=== PATIENT | male | born 1970 | race Caucasian/White ===

== ENCOUNTER 2023-07-30 16:20 | Outpatient (OUT) | payer OTHER, SELFPAY ==
--- NOTE | 2023-07-30 16:36 | XR_ITS ---
The [address] [address] Patient Name: MITESH MURILLO MRN: [id number] date: 1970 Sex: M Assigned Patient Location: LAB Current Patient Location: Accession/Order Number: [id number] Exam Date: 07/30/2023 16:31 Report Date: 08/01/2023 06:59 At the request of: ANABELA MONROY Procedure: XR shoulder RT min 2V PROCEDURE: XR shoulder RT min 2V HISTORY: right shoulder pain M25.511 COMPARISON: None. FINDINGS: BONES:No fracture, acute abnormality, or significant arthropathy. SOFT TISSUES:No visible soft tissue swelling. EFFUSION:None visible. OTHER: Negative. XR/XR shoulder RT min 2V IMPRESSION: 1. No acute bone abnormality or significant degenerative changes. Electronically authenticated by: KERMIT ZUNIGA Date: 08/01/2023 06:59
== END 2023-07-30 16:21 | disposition home or self-care (01) ==
LOC: LAB 16:24
PROVIDERS: PCP Internal Medicine; Visit Provider Internal Medicine
DX: Z00.00 Encounter for general adult medical examination without abnormal findings (principal); M25.511 Pain in right shoulder
CPT/HCPCS: 73030

== ENCOUNTER 2023-07-31 09:42 | Outpatient (OUT) | payer OTHER, SELFPAY ==
--- OUTSIDE RECORDS SUMMARY | 2023-07-31 10:06 | XMS_ITS | CCD ---
Author Name Unknown Address [address] [place] [address] Organization [facility] Care Team Providers Care [place] Pinner Name Role Phone PORFIRIO, DR PEÑALOZA Consulting Unavailable PORFIRIO, DR PEÑALOZA Attending Unavailable PORFIRIO, DR PEÑALOZA Admitting Unavailable PORFIRIO, DR PEÑALOZA Primary Care Unavailable LALITO, DR PATRICIA Cornelius Consulting Unavailable Patricia Chavez Unavailable Problems Problem Classification Problem Date Documented Date Episodic/Chronic Lymphadenitis (1 source) Localized enlarged lymph nodes; Translations: [LOCALIZED ENLARGED LYMPH NODES] Onset: 2 Episodic Other and unspecified benign neoplasm (1 source) Benign lipomatous neoplasm of skin and subcutaneous tissue of trunk; Translations: [YONI LIPOMAT NEOPLSM SKIN SUBQ TRUNK] Onset: 2 Episodic Other gastrointestinal disorders (1 source) Dysphagia, pharyngoesophageal phase; Translations: [DYSPHAGIA PHARYNGOESOPHAGEAL PHASE] Onset: 2 Episodic Results Test Name Value Interpretation Reference Range Facil ity CBC AUTO DIFFon 07-19-2021 BASO # 0.0 103/ul Normal 0.0-0.1 [facility] Comment on above: Performed By: #### C BC #### [facility] [address] [place] [address] Dr. Primo Dumont Basophils/100 WBC (Bld) 1.1 % Normal 0.2-2.0 [facility] Comment on above: Performed By: #### C BC #### [facility] [address] [place] [address] Dr. Primo Dumont EO # 0.2 103/ul Normal 0.0-0.7 [facility] Comment on above: Performed By: #### C BC #### [facility] [address] [place] [address] Dr. Primo Dumont Eosinophils/100 WBC (Bld) 6.3 % Normal 0.9-7.0 [facility] Comment on above: Performed By: #### C BC #### [facility] [address] [place] [address] Dr. Primo Dumont Erythrocyte distribution width (RBC) [Ratio] 12.4 % Normal 11.0-15.0 [facility] Comment on above: Performed By: #### C BC #### [facility] [address] [place] [address] Dr. Primo Dumont Hematocrit (Bld) [Volume fraction] 44.8 % Normal 42.0-54.0 [facility] Comment on above: Performed By: #### C BC #### [facility] [address] [place] [address] Dr. Primo Dumont Hemoglobin (Bld) [Mass/Vol] 14.7 g/dL Normal 14.0-18.0 [facility] Comment on above: Performed By: #### C BC #### [facility] [address] [place] [address] Dr. Primo Dumont IG # 0.01 10e3/ul Normal 0.00-0.03 [facility] Comment on above: Performed By: #### C BC #### [facility] [address] [place] [address] Dr. Primo Dumont IG % 0.3 % Normal 0.0-0.5 [facility] Comment on above: Performed By: #### C BC #### [facility] [address] [place] [address] Dr. Primo Dumont LYMPH # 1.4 103/ul Normal 1.2-3.8 [facility] Comment on above: Performed By: #### C BC #### [facility] [address] [place] [address] Dr. Primo Dumont Lymphocytes/100 WBC (Bld) 40.2 % Normal 20.5-60.0 [facility] Comment on above: Performed By: #### C BC #### [facility] [address] [place] [address] Dr. Primo Dumont MANUAL DIFF REQ NO Normal [facility] Comment on above: Performed By: #### C BC #### [facility] [address] [place] [address] Dr. Primo Dumont MCH (RBC) [Entitic mass] 30.4 pg Normal 25.9-34.0 [facility] Comment on above: Performed By: #### C BC #### [facility] [address] [place] [address] Dr. Primo Dumont MCHC (RBC) [Mass/Vol] 32.8 g/dL Normal 29.9-35.2 [facility] Comment on above: Performed By: #### C BC #### [facility] [address] [place] [address] Dr. Primo Dumont MCV (RBC) [Entitic vol] 92.8 fL Normal 80.0-94.0 [facility] Comment on above: Performed By: #### C BC #### [facility] [address] [place] [address] Dr. Primo Dumont MONO # 0.3 103/ul Normal 0.3-0.8 [facility] Comment on above: Performed By: #### C BC #### [facility] [address] [place] [address] Dr. Primo Dumont Monocytes/100 WBC (Bld) 8.8 % Normal 1.7-12.0 [facility] Comment on above: Performed By: #### C BC #### [facility] [address] [place] [address] Dr. Primo Dumont NEUT # 1.5 103/ul Normal 1.4-6.5 [facility] Comment on above: Performed By: #### C BC #### [facility] [address] [place] [address] Dr. Primo Dumont Neutrophils/100 WBC (Bld) 43.3 % Normal 43.0-75.0 [facility] Comment on above: Performed By: #### C BC #### [facility] [address] [place] [address] Dr. Primo Dumont Platelet mean volume (Bld) [Entitic vol] 8.7 fL Critically low 9.5-13.5 [facility] Comment on above: Performed By: #### C BC #### [facility] [address] [address] [address] Primo Dumont PLT 319 103/ul Normal 150-450 [facility] Comment on above: Performed By: #### C BC #### [facility] [address] [address] [address] Primo Dumont RBC 4.83 106/ul Normal 4.70-6.10 [facility] Comment on above: Performed By: #### C BC #### [facility] [address] [address] [address] Primo Dumont WBC 3.5 103/ul Critically low 4.0-11.0 [facility] Comment on above: Performed By: #### C BC #### [facility] [address] [place] [address] Dr. Primo Dumont LIPID PROFILEon 07-19-2021 CHOL-HDL RATIO NORM SEE BELOW Normal [facility] Comment on above: Result Comment: 3.3 - 4.4 LOW RISK 4.4 - 7.1 AVERAGE RISK 7.1 - 11.0 MODERATE RISK >11.0 HIGH RISK Performed By: #### L IPID, CMP #### [facility] [address] [place] [address] Dr. Primo Dumont Cholesterol [Mass/Vol] 231 mg/dL Critically high <=200 [facility] Comment on above: Performed By: #### L IPID, CMP #### [facility] [address] [place] [address] Dr. Primo Dumont Cholesterol in HDL [Mass/Vol] 83 mg/dL Normal [facility] Comment on above: Performed By: #### L IPID, CMP #### [facility] [address] [place] [address] Dr. Primo Dumont Cholesterol in LDL [Mass/Vol] 137.0 mg/dL Normal [facility] Comment on above: Performed By: #### L IPID, CMP #### [facility] [address] [place] [address] Dr. Primo Dumont Cholesterol.total/C holesterol in HDL [Mass ratio] 2.8 {ratio} Normal [facility] Comment on above: Performed By: #### L IPID, CMP #### [facility] [address] [place] [address] Dr. Primo Dumont HDL NORMAL > or = 60 mg/dl - LO W CARDIOVASCULAR RISK <40 mg/dl - HIGH CARDIOVASCULAR RISK Normal [facility] Comment on above: Performed By: #### L IPID, CMP #### [facility] [address] [place] [address] Dr. Primo Dumont LDL CALC NORMAL SEE BELOW Normal [facility] Comment on above: Result Comment: <100 mg/dl OPTIMAL 100 - 129 mg/dl NEAR OR ABOVE OPTIMAL 130 - 159 mg/dl BORDERLINE HIGH 160 - 189 mg/dl HIGH >190 mg/dl VERY HIGH Performed By: #### L IPID, CMP #### [facility] [address] [place] [address] Dr. Primo Dumont Triglyceride [Mass/Vol] 55 mg/dL Normal <=150 [facility] Comment on above: Performed By: #### L IPID, CMP #### [facility] [address] [place] [address] Dr. Primo Dumont VLDL CALC 11.0 mg/dL Normal [facility] Comment on above: Performed By: #### L IPID, CMP #### [facility] [address] [place] [address] Dr. Primo Dumont PROF 14(COMP METB)on 022 Albumin [Mass/Vol] 4.4 g/dL Normal 3.5-5.0 [facility] Comment on above: Performed By: #### L IPID, CMP #### [facility] [address] [place] [address] Dr. Primo Dumont Albumin/Globulin [Mass ratio] 1.2 {ratio} Normal [facility] Comment on above: Performed By: #### L IPID, CMP #### [facility] [address] [place] [address] Dr. Primo Dumont ALP [Catalytic activity/Vol] 67 U/L Normal 38-126 [facility] Comment on above: Performed By: #### L IPID, CMP #### [facility] [address] [place] [address] Dr. Primo Dumont ALT [Catalytic activity/Vol] 26 U/L Normal 21-72 [facility] Comment on above: Performed By: #### L IPID, CMP #### [facility] [address] [place] [address] Dr. Primo Dumont Anion gap [Moles/Vol] 7.2 mmol/L Normal [facility] Comment on above: Performed By: #### L IPID, CMP #### [facility] [address] [place] [address] Dr. Primo Dumont AST [Catalytic activity/Vol] 15 U/L Critically low 17-59 [facility] Comment on above: Performed By: #### L IPID, CMP #### [facility] [address] [place] [address] Dr. Primo Dumont Bilirubin [Mass/Vol] 0.5 mg/dL Normal 0.2-1.3 [facility] Comment on above: Performed By: #### L IPID, CMP #### [facility] [address] [place] [address] Dr. Primo Dumont Calcium [Mass/Vol] 8.9 mg/dL Normal 8.4-10.2 [facility] Comment on above: Performed By: #### L IPID, CMP #### [facility] [address] [place] [address] Dr. Primo Dumont Chloride [Moles/Vol] 105 mmol/L Normal 98-107 [facility] Comment on above: Performed By: #### L IPID, CMP #### [facility] [address] [place] [address] Dr. Primo Dumont CO2 [Moles/Vol] 33.0 mmol/L Critically high 22.0-30.0 [facility] Comment on above: Performed By: #### L IPID, CMP #### [facility] [address] [place] [address] Dr. Primo Dumont Creatinine [Mass/Vol] 0.85 mg/dL Normal 0.66-1.25 [facility] Comment on above: Performed By: #### L IPID, CMP #### [facility] [address] [place] [address] Dr. Primo Dumont EGFR-AF NIGERIAN >60 Normal >=60 [facility] Comment on above: Performed By: #### L IPID, CMP #### [facility] [address] [address] [address] Primo Dumont EGFR-NON AF NIGERIAN >60 Normal >=60 [facility] Comment on above: Performed By: #### L IPID, CMP #### [facility] [address] [place] [address] Dr. Primo Dumont Globulin (S) [Mass/Vol] 3.6 g/dL Normal [facility] Comment on above: Performed By: #### L IPID, CMP #### [facility] [address] [place] [address] Dr. Primo Dumont Glucose [Mass/Vol] 107 mg/dL Critically high 74-106 [facility] Comment on above: Performed By: #### L IPID, CMP #### [facility] [address] [place] [address] Dr. Primo Dumont Potassium [Moles/Vol] 4.2 mmol/L Normal 3.4-5.0 [facility] Comment on above: Performed By: #### L IPID, CMP #### [facility] [address] [place] [address] Dr. Primo Dumont Protein [Mass/Vol] 8.0 g/dL Normal 6.1-8.2 [facility] Comment on above: Performed By: #### L IPID, CMP #### [facility] [address] [place] [address] Dr. Primo Dumont Sodium [Moles/Vol] 141 mmol/L Normal 137-145 [facility] Comment on above: Performed By: #### L IPID, CMP #### [facility] [address] [place] [address] Dr. Primo Dumont Urea nitrogen [Mass/Vol] 13.0 mg/dL Normal 9.0-20.0 [facility] Comment on above: Performed By: #### L IPID, CMP #### [facility] [address] [address] [address] Primo Dumont Urea nitrogen/Creatinine [Mass ratio] 15.3 mg/mg Normal [facility] Comment on above: Performed By: #### L IPID, CMP #### [facility] [address] [address] [address] Primo Dumont US SINGLE QUAD LT LOWERon US SINGLE QUAD LT LOWER EXAM: US SINGLE QUAD LT LOWER HISTORY: . Lipoma of skin and subcutaneous tissue of trunk . COMPARISON: None. TECHNIQUE: Carmen scale and color imaging was performed FINDINGS: Scanning of the soft tissues of the left lower quadrant regional to the patient's area of concern demonstrates a 4.1 x 1.8 x 0.6 cm oblong slightly hypoechoic solid area. This is well delineated smoothly marginated. No vascularity is noted ultrasonographically. IMPRESSION: Corresponding with patient's palpable abnormality is a smoothly marginated 4.1 x 1.8 x 0.6 cm slightly hypoechoic solid area. Findings would be most consistent with benign lesion such as a lipoma. A more aggressive lesion cannot entirely be excluded though felt less likely. Clinical correlation is suggested. Electronically authenticated by: PATRICIA CHAVEZ Date: 2021-07-19 09:38 Normal [facility] US ST HEAD_NECKon 07-19-[address] HEAD_NECK EXAM: US ST HEAD_NEC K HISTORY: Localized enlarged lymph nodes COMPARISON: None. TECHNIQUE: Grayscale and color ultrasound FINDINGS: In the area of the patient's palpable abnormality, left neck, to normal size normal morphology lymph nodes are identified. Lymph node 1: 0.8 x 0.4 x 0.7 cm Lymph node 2: 1.2 x 0.6 x 0.7 cm IMPRESSION: 2 normal-sized normal morphology lymph nodes Electronically authenticated by: PATRICIA STARKEY Date: 2021-07-19 09:50 Normal [facility] XR MODIFIED BARIUM SWALLOWon 07-19-2021 XR MODIFIED BARIUM SWALLOW EXAMINATION: XR MODIFIED BARIUM SWALLOW HISTORY: Dysphagia COMPARISON: No relevant comparison available. TECHNIQUE: A swallowing evaluation was performed with fluoroscopy in the usual manner. Standard level fluoroscopic mode of operation utilized. 1 minute of fluoroscopy, 22 images. The procedure was recorded. Speech pathology was present FINDINGS: ORAL PHASE: Normal deglutition. PHARYNGEAL PHASE: Normal swallowing. ASPIRATION: None. STRUCTURE: Normal. No visible obstruction, stricture, or dilatation. OTHER: Negative. IMPRESSION: Normal modified barium swallow Electronically authenticated by: PATRICIA STARKEY Date: 2021-07-19 10:42 Normal [facility] Encounters Encounter Date Encounter Type Care Provider Facility Start: 07-20-2021 Encounter for genera l adult medical examination without abnormal findings DR ANABELA MONROY [facility] Start: 07-19-2021 End: 07-20-[address] ANABELA MONROY Facility: Start: 07-19-2021 End: 07-20-2021 Encounter for general adult medical examination without abnormal findings DR ANABELA MONROY Facility:[facility] Payers Date Payer Category Payer Unknown [id number] 1957 Unknown [id number] Summary Purpose Family History No Family History Records Found Advance Directives No Advanced Directives Records Found Additional Source Comments (unrecognized sect ion and content) No Status Records Found INFORMATION SOURCE (unrecogn ized section and content) DATE CREATED AUTHOR 07/21/2021 [facility] FOR RECORDS PERTAINING TO PATIENTS WHO ARE OR HAVE BEEN ENROLLED IN A CHEMICAL DEPENDENCY/SUBSTANCEABUSE PROGRAM, SOME INFORMATION MAY BE OMITTED. This clinical summary was aggregated from multiple sources. Caution should be exercised in using it in the provision of clinical care. This summary normalizes information from multiple sources, and as a consequence, information in this document may materially change the coding, format and clinical context of patient data. In addition, data may be omitted in some cases. CLINICAL DECISIONS SHOULD BE BASED ON THE PRIMARY CLINICAL RECORDS. [facility] [employer] provides no warranty or guarantee of the accuracy or completeness of information in this document.
[2023-07-31 10:32] LABS: Basophils Percent Auto 1.2 % (0.2-2.0); Eosinophils Absolute Auto 0.2 10^3/uL (0.0-0.7); Eosinophils Percent Auto 6.6 % (0.9-7.0); Hematocrit 44.3 % (42.0-54.0); Hemoglobin 14.8 g/dL (14.0-18.0); Immature Granulocytes Abs Auto 0.01 10^3/uL (0.00-0.03); Immature Granulocytes Pct Auto 0.3 % (0.0-0.5); Lymphocytes Absolute Auto 1.5 10^3/uL (1.2-3.8); Lymphocytes Percent Auto 44.4 % (20.5-60.0); Mean Corpuscular HGB Conc 33.4 g/dL (29.9-35.2); Mean Corpuscular Volume 92.7 fL (80.0-94.0); Monocytes Absolute Auto 0.3 10^3/uL (0.3-0.8); Monocytes Percent Auto 8.4 % (1.7-12.0); Neutrophils Absolute Auto 1.3 10^3/uL (1.4-6.5); Neutrophils Percent Auto 39.1 % (43.0-75.0); Platelet Count 303 10^3/uL (150-450); Red Blood Count 4.78 10^6/uL (4.70-6.10); Red Cell Distribution Width 11.9 % (11.0-15.0); White Blood Count 3.3 10^3/uL (4.0-11.0)
[2023-07-31 11:38] LABS: Alanine Aminotransferase 30 U/L (16-63); Albumin Globulin Ratio 1.2; Albumin Level 4.2 g/dL (3.4-5.0); Alkaline Phosphatase 39 U/L (46-116); Anion Gap 11.6; Aspartate Amino Transferase 20 U/L (15-37); Bilirubin Total 0.7 mg/dL (0.2-1.0); Calcium 8.6 mg/dL (8.5-10.1); Carbon Dioxide 29.5 mmol/L (21.0-32.0); Chloride 101 mmol/L (98-107); Cholesterol 221 mg/dL (<=200); Estimated GFR (African America >60 (>=60); Estimated GFR (Non-African Ame >60 (>=60); Globulin 3.5 g/dL; Glucose 84 mg/dL (74-106); HDL Cholesterol 73 mg/dL (40-60); Potassium 4.1 mmol/L (3.5-5.1); Sodium 138 mmol/L (136-145); Total Protein 7.7 g/dL (6.4-8.2); Triglycerides 55 mg/dL (<=150)
[2023-07-31 12:12] LABS: Prostate Specific Antigen Scrn 1.15 ng/mL (<=4.00)
== END 2023-07-31 09:43 | disposition home or self-care (01) ==
LOC: LAB 09:42
PROVIDERS: PCP Internal Medicine; Visit Provider Internal Medicine
DX: Z00.00 Encounter for general adult medical examination without abnormal findings (principal)
CPT/HCPCS: 36415; 80053; 80061; 85025; G0103

== ENCOUNTER 2023-08-01 12:17 | Outpatient (RCR) | payer OTHER, SELFPAY | END 2023-08-16 13:57 | disposition home or self-care (01) | LOC: PT 12:17 | PROVIDERS: PCP Internal Medicine; Visit Provider Internal Medicine | DX: M25.511 Pain in right shoulder (principal); M75.101 Unspecified rotator cuff tear or rupture of right shoulder, not specified as traumatic | CPT/HCPCS: 97110; 97161 ==

== ENCOUNTER 2025-02-07 06:48 | Outpatient (OUT) | payer OTHER, SELFPAY ==
--- OUTSIDE RECORDS SUMMARY | 2025-01-31 05:34 | XMS_ITS | Continuity of Care Document ---
Author Organization [facility] Address [address] [place] [address] Phone Care Team Providers Care Buckle Stringer Name Role Phone Fernando Matt BRIGHT Primary Care Provider Matt King DO Attending Provider [phone] Care Teams Patient Care Team Team Status: Active Member Role Status Dates Matt King DO Primary Care Provider Active Patient Care Team Team Status: Inactive Member Role Status Dates Matt King DO Primary Care Provider Active Start: January 31, 2025 End: January 31, 2025 Matt King DO Attending Provider Active Sta rt: January 31, 2025 End: January 31, 2025 Chief Complaint and Reason for Visit Chief Complaint Admit Date Wellness January 31, 2025 8:54am Reason for Visit Admit Date Dupuytren's contracture of both hands Se pt2024 8:54am Lipoma of abdominal wall January 31, 2025 8:54am Overweight January 31, 2025 8:54am Right shoulder pain January 31, 2025 8:54am Screening for colon cancer January 8:54am Screening PSA (prostate specific antigen ) January 31, 2025 8:54am Wellness examination January 31 8:54am Allergies, Adverse Reactions, Alerts Allergen Type Severity Reaction Last Updated Verified Status No Known Allergies Allergy Unknown Sept2024 9:02am Yes Active Social History Smoking Status Status Start Date End Date Date of Observa tion Never smoked tobacco (finding) January 31, 2025 9:03am Observation Status Observation Response Date of Response Legal Sex Male (finding) Sex Assigned At Male 1970 Family History Relationship Condition Age at Onset Recorded Date/T ling father Diabetes mellitus Unknown Problems Active Problems Medical Problem Onset Date Status Dupuytren's contracture of both hands Unknown Active Lipoma of abdominal wall Unknown Active Rotator cuff dysfunction Unknown Active Screening for colon cancer Unknown Activ e Spondylosis without myelopathy or radiculopathy, lumbar region Unknown Active Dupuytren contracture Unknown Active Overweight Unknown Active Herpes zoster with complication Unknown Active Right shoulder pain Unknown Active Lumbar spondylosis Unknown Active Medications No known medications Vital Signs Vital Reading Result Reference Range Collection Date/Time Height 76 [in_i] January 31, 2025 9:05am Weight 106.25 kg January 31, 2025 9:05am Heart Rate 60 /min 60-100 January 31, 2025 9:05am Respiratory rate 12 /min 12-24 January 172024 9:05am BP Systolic 105 mm[Hg] 100-140 January 31, 2025 9:05am BP Diastolic 71 mm[Hg] 60-100 January 31, 2025 9:05am BMI (Body Mass Index) 28.5 kg/m2 Sept2024 9:05am Advance Directives Advance Directive Response Recorded Date/ Time Advance Directives No July 29, 2 024 3:12pm Insurance Providers Guarantor Todd Bartlett Address [address] [place] [phone] Contact Info. Home Phone: Payer Policy Id Subscriber's Name Subscriber Id Effectiv e Date Expiration Date [facility] [place] [id number] Todd Bartlett [id number] Encounters Encounter Location(s) Arrival/Admit Date Discharge/Depart Date Provider(s) Departed Physician/Prov ider Office Visit -[facility] January 31, 2025 8:54am January 31, 2025 9:33am Matt King , DO Recent Diagnosis Onset Date Admit Date Dupuytren's contracture of both hands Unknown January 31, 2025 8:54am Lipoma of abdominal wall Unknown er 2024 8:54am Overweight Unknown January 31, 2025 8:54am Right shoulder pain Unknown January [id number] 8:54am Screening for colon cancer Unknown mber 2024 8:54am Screening PSA (prostate specific antigen) Unknow n January 31, 2025 8:54am Wellness examination Unknown January 172024 8:54am Assessments Diagnosis Onset Date Resolution Status Admit Date Dupuytren's contracture of both hands acute January 31, 2025 8:54am Lipoma of abdominal wall acute January 31, 2025 8:54am Overweight acute January 8:54am Right shoulder pain acute [id number] 8:54am Screening for colon cancer acute January 31, 2025 8:54am Screening PSA (prostate specific antigen) noneactive January 8:54am Wellness examination noneactive Jan 8:54am Plan of Treatment Author Matt King [facility] Authored January 31, 2025 9:30am I have instructed this patie nt on a healthy diet and exercise program. I have also reviewed age-appropriate preventive testing recommended. Enlarging soft tissue mass, left lower abdomen. Completed referral to Surgery - decided to observe for now Persistent right shoulder pain. Throwing and working intensify his discomfort. He has reduced ROM in abduction and rotation. XR: normal Symptoms are tolerable I have instructed this patient on a low-fat, high-fiber diet. I have also instructed them to reduce calories, portions sizes, sweet drinks and snacks. I have also recommended they exercise for 30 minutes, 3-5 times weekly. They are aware of the comorbid conditions associated with excessive weight: Diabetes, HTN, Hyperlipidemia, CAD and arthritis. Reassured, denies pain or restriction of motion. Monitor for now and notify office w/ pain. I have recommended yearly PSA testing. I have informed him that the PSA can be elevated w/ cancer, infection and enlarged prostates. I have explained to the patient, that If his PSA is elevated, while there are many causes, referral will be recommended to r/o cancer. He would be referred to Urology, who may recommend an MRI, TRUS/bx or possibly continued monitoring. He is agreeable to this plan of action PSA: 06.02 - 07/2023 This is an asymptomatic, low risk patient, who is due for a screening colonoscopy. There has been no change in appetite, weight or bowel habits. There is no history of abdominal pain, heartburn, dysphagia, melena or hematochezia. Cologuard order printed and faxed Future Tests Future scheduled test information is unavailable Pending Tests Test Name Ordered Date Scheduled Date Comprehensive Metabolic Panel January 31 9:28am Future Visits Future appointment information is unavailable Referrals to Other Providers Referral information is unavailable Future Procedures Procedure Name Ordered Date Scheduled Date Complete Blood Count Auto Diff January 31 9:28am Lipid Panel January 31, 2025 9:28am PSA Screen (Yearly Only) January 31, 2025 9: 28am AMB Cologuard January 31, 2025 9:27am Future Medications Future medication information is unavailable Patient Instructions Patient instructions are unavailable
--- OUTSIDE RECORDS SUMMARY | 2025-02-07 06:51 | XMS_ITS | CCD ---
Author Organization [facility] CliniSyal Care Team Providers Care Manager Wireless Name Role Phone DR MATT KING Consulting Unavailable FERNANDO, DR PEÑALOZA Attending Unavailable FERNANDO, DR PEÑALOZA Admitting Unavailable FERNANDO, DR PEÑALOZA Primary Care Unavailable LALITO, DR PATRICIA Cornelius Consulting Jay Chavez, Patricia Consulting MATT Allen Primary Care Physician Mitesh OLIVER Attending MATT Allen Referring Matt Allen DO Primary Care Provider Matt Knig DO Attending Provider Allergies Allergy Classification Reported Allergen(s) Allergy Type Date of Onset Reaction(s) Facility (1 source) No Known Medication Allergies; Translations: [No Known Medication Allergies] Propensity to adverse reactions (disorder) [facility] Repository Problems Problem Classification Problem Date Documented Date Episodic/Chronic Lymphadenitis (1 source) Localized enlarged lymph nodes; Translations: [LOCALIZED ENLARGED LYMPH NODES] Onset: 2 Episodic Other and unspecified benign neoplasm (3 sources) Benign lipomatous neoplasm of skin and subcutaneous tissue of trunk; Translations: [Lipoma of other skin and subcutaneous tissue] Onset: 2 07-30-2023 Episodic Other and unspecified benign neoplasm (4 sources) Lipoma of abdominal wall; Translations: [Benign lipomatous neoplasm of skin and subcutaneous tissue of trunk] 07-30-2023 Episodic Other and unspecified benign neoplasm (1 source) Lipoma of skin and subcutaneous tissue of trunk; Translations: [Benign lipomatous neoplasm of skin and subcutaneous tissue of trunk] Onset: 4 Episodic Other connective tissue disease (3 sources) Dupuytren's contracture; Translations: [Palmar fascial fibromatosis [Dupuytren]] 07-30-2023 Episodic Other connective tissue disease (1 source) Palmar fascial fibromatosis [Dupuytren]; Translations: [Contracture of palmar fascia] 07-30-2023 Episodic Other connective tissue disease (2 sources) Dupuytrens contracture of bilateral hands; Translations: [Palmar fascial fibromatosis [Dupuytren]] 07-30-2023 Episodic Other connective tissue disease (1 source) Disorder of rotator cuff; Translations: [Unspecified disorder of synovium and tendon, unspecified shoulder] 08-26-2023 Episodic Other gastrointestinal disorders (1 source) Dysphagia, pharyngoesophageal phase; Translations: [DYSPHAGIA PHARYNGOESOPHAGEAL PHASE] Onset: Episodic Other non-traumatic joint disorders (5 sources) Pain in right shoulder; Translations: [Right shoulder pain] 07-30-2023 Episodic Other nutritional; endocrine; and metabolic disorders (4 sources) Overweight; Translations: [Overweight] 07-30-2023 Episodic Other nutritional; endocrine; and metabolic disorders (2 sources) Overweight; Translations: [Overweight] 07-30-2023 Episodic Other nutritional; endocrine; and metabolic disorders (1 source) Overweight in adulthood with body mass index of 25 or more but less than 30 09-10-2023 Episodic Other screening for suspected conditions (not mental disorders or infectious disease) (4 sources) Encounter for screening for malignant neoplasm of prostate; Translations: [Screening for malignant neoplasms of prostate] 07-30-2023 Episodic Spondylosis; intervertebral disc disorders; other back problems (5 sources) Lumbar spondylosis; Translations: [Spondylosis without myelopathy or radiculopathy, lumbar region] 07-30-2023 Chronic Viral infection (2 sources) Herpes zoster; Translations: [Zoster with other complications] 07-30-2023 Episodic Results Test Name Value Interpretation Reference Range Facility Facesheeton 09-11-2023 Facesheet [id number] 0#1.00TIFF Normal [facility] Ambulatory Visit Summaryon 0 09-10-2023 Ambulatory Visit Summary MITESH BARTLETT :1970 Visit Date:09/10/2023 Ambulatory Visit Instructions Your Diagnosis Lipoma of abdominal wall Your Care Team Attending Physician - Mitesh OLIVER MD Primary Care Physician - MATT KING DO Referring Physician - MATT KING DO Procedures Performed None. Discharge Vitals Heart Rate (Peripheral) 72 Respiratory Rate 16 Blood Pressure 112/78 Height 193 cm Height 76 in Weight 108 kg Weight 237.6 lb BMI 28.99 Allergies No Known Allergies No Known Medication Allergies Problems Ongoing - Any problem that you are currently receiving treatment for. BMI 28.0-28.9,adult Lipoma of abdominal wall Lumbar spondylosis Overweight Patient Survey You may receive a survey via text or e-mail asking about your office visit. Please share your experience with us by completing your survey. We appreciate your feedback and thank you for choosing us for your care. Normal [facility] Physician Referralon 024 Physician Referral [id number] #1.00TIFF Normal [facility] Basophils Auto (Bld) [#/Vol] on 07-31-2023 Basophils (Bld) [#/Vol] 0.0 10 3/uL 0.0-0.1 [facility] Basophils/100 WBC Auto (Bld) on 07-31-2023 Basophils/100 WBC (Bld) 1.2 % 0.2-2.0 [facility] Cholesterol in LDL Calc [Mas s/Vol]on 07-31-2023 Cholesterol in LDL [Mass/Vol] 137.0 mg/dL [facility] Comment on above: <100 mg/dl [id number] 0-129 mg/dl NEAR OR ABOVE [id number] mg/dl BORDERLINE [id number] mg/dl HIGH>190 mg/dl VERY HIGH Cholesterol in VLDL Calc [Ma ss/Vol]on 07-31-2023 Cholesterol in VLDL [Mass/Vol] 11.0 mg/dL [facility] Eosinophils/100 WBC Auto (Bl d)on 07-31-2023 Eosinophils/100 WBC (Bld) 6.6 % 0.9-7.0 [facility] Erythrocyte distribution wid th Auto (RBC) [Ratio]on 07-31-2023 Erythrocyte distribution width (RBC) [Ratio] 11.9 % 11.0-15.0 [facility] Estimated glomerular filtrat ion rate (GFR) non- Americanon 07-31-2023 GFR/1.73 sq M.predicted among non-blacks MDRD (S/P/Bld) [Vol rate/Area] mL/min/{1.73_m2} >=60 [facility] Globulin Calc (S) [Mass/Vol] on 07-31-2023 Globulin (S) [Mass/Vol] 3.5 g/dL [facility] Hematocrit Auto (Bld) [Volum e fraction]on 07-31-2023 Hematocrit (Bld) [Volume fraction] 44.3 % 42.0-54.0 [facility] Hemoglobin [Mass/volume] in Bloodon 07-31-2023 Hemoglobin (Bld) [Mass/Vol] 14.8 g/dL 14.0-18.0 [facility] Laboratory - Chemistry and C hemistry - challengeon 07-31-2023 Albumin [Mass/Vol] 4.2 g/dL 3.4-5.0 [facility] ALP [Catalytic activity/Vol] 39 U/L 46-116 [facility] ALT [Catalytic activity/Vol] 30 U/L 16-63 [facility] AST [Catalytic activity/Vol] 20 U/L 15-37 [facility] Bilirubin [Mass/Vol] 0.7 mg/dL 0.2-1.0 [facility] Calcium [Mass/Vol] 8.6 mg/dL 8.5-10.1 [facility] Chloride [Moles/Vol] 101 mmol/L 98-107 [facility] Cholesterol [Mass/Vol] 221 mg/dL <=200 [facility] Cholesterol in HDL [Mass/Vol] 73 mg/dL 40-60 [facility] Comment on above: > or =60 mg/dl - LOW CARDIOVASCULAR RISK<40 mg/dl - HIGH CARDIOVASCULAR RISK CO2 [Moles/Vol] 29.5 mmol/L 21.0-32.0 [facility] Creatinine [Mass/Vol] 0.94 mg/dL 0.70-1.30 [facility] GFR/1.73 sq M.predicted MDRD (S/P/Bld) [Vol rate/Area] mL/min/{1.73_m2} >=60 [facility] Glucose [Mass/Vol] 84 mg/dL 74-106 [facility] Potassium [Moles/Vol] 4.1 mmol/L 3.5-5.1 [facility] Protein [Mass/Vol] 7.7 g/dL 6.4-8.2 [facility] Sodium [Moles/Vol] 138 mmol/L 136-145 [facility] Triglyceride [Mass/Vol] 55 mg/dL <=150 [facility] Urea nitrogen [Mass/Vol] 16.0 mg/dL 7.0-18.0 [facility] Urea nitrogen/Creatinine [Mass ratio] 17.0 mg/mg [facility] - Hematology and Cell countson 07-31-2023 Immature granulocytes/100 WBC (Bld) 0.3 % 0.0-0.5 [facility] Leukocytes [#/volume] correc shadi for nucleated erythrocytes in Blood by Automated counon 07-31-2023 WBC corrected for nucl RBC Auto (Bld) [#/Vol] 3.3 10 3/uL 4.0-11.0 [facility] Lymphocytes Auto (Bld) [#/Vo l]on 07-31-2023 Lymphocytes (Bld) [#/Vol] 1.5 10 3/uL 1.2-3.8 [facility] Lymphocytes/100 WBC Auto (Bl d)on 07-31-2023 Lymphocytes/100 WBC (Bld) 44.4 % 20.5-60.0 [facility] MCH Auto (RBC) [Entitic mass ]on 07-31-2023 MCH (RBC) [Entitic mass] 31.0 pg 25.9-34.0 [facility] MCHC Auto (RBC) [Mass/Vol]on 07-31-2023 MCHC (RBC) [Mass/Vol] 33.4 g/dL 29.9-35.2 [facility] MCV Auto (RBC) [Entitic vol] on 07-31-2023 MCV (RBC) [Entitic vol] 92.7 fL 80.0-94.0 [facility] Monocytes Auto (Bld) [#/Vol] on 07-31-2023 Monocytes (Bld) [#/Vol] 0.3 10 3/uL 0.3-0.8 [facility] Monocytes/100 WBC Auto (Bld) on 07-31-2023 Monocytes/100 WBC (Bld) 8.4 % 1.7-12.0 [facility] Neutrophils Auto (Bld) [#/Vo l]on 07-31-2023 Neutrophils (Bld) [#/Vol] 1.3 10 3/uL 1.4-6.5 [facility] Neutrophils/100 WBC Auto (Bl d)on 07-31-2023 Neutrophils/100 WBC (Bld) 39.1 % 43.0-75.0 [facility] No Panel Informationon 07-30 Eosinophils # (Auto) 0.2 10 3/uL 0.0-0.7 [facility] Immature Granulocyte # (Auto) 0.01 10 3/uL 0.00-0.03 [facility] Prostate Specific Antigen Screen 1.15 ng/mL <=4.00 [facility] Platelet mean volume Auto (B ld) [Entitic vol]on 07-31-2023 Platelet mean volume (Bld) [Entitic vol] 10.0 fL 9.5-13.5 [facility] Platelets Auto (Bld) [#/Vol] on 07-31-2023 Platelets (Bld) [#/Vol] 303 10 3/uL 150-450 [facility] RBC Auto (Bld) [#/Vol]on RBC (Bld) [#/Vol] 4.78 10 6/uL 4.70-6.10 [facility] Serum or plasma albumin/glob ulin mass ratioon 07-31-2023 Albumin/Globulin [Mass ratio] 1.2 {ratio} [facility] Serum or plasma anion gap de terminationon 07-31-2023 Anion gap [Moles/Vol] 11.6 mmol[facility] or plasma total choles terol/high density lipoprotein (HDL) cholesterol mass bridget 07-31-2023 Cholesterol.total/Cho lesterol in HDL [Mass ratio] 3.0 {ratio} [facility] Comment on above: 3.3 - 4.4 LOW RISK4. 4 - 7.1 AVERAGE RISK7.1 - 11.0 MODERATE RISK>11.0 HIGH RISK CBC AUTO DIFFon 07-19-2021 BASO # 0.0 103/ul Normal 0.0-0.1 [facility] Comment on above: Performed By: #### C BC #### [facility] [address] [place] [address] Dr. Primo Dumont Basophils/100 WBC (Bld) 1.1 % Normal 0.2-2.0 [facility] Comment on above: Performed By: #### C BC #### [facility] [address] [place] [address] Dr. Primo Dumont EO # 0.2 103/ul Normal 0.0-0.7 [facility] Comment on above: Performed By: #### C BC #### [facility] [address] [place] [address] Dr. Primo Dumont Eosinophils/100 WBC (Bld) 6.3 % Normal 0.9-7.0 [facility] Comment on above: Performed By: #### C BC #### [facility] [address] [place] [address] Dr. Primo Dumont Erythrocyte distribution width (RBC) [Ratio] 12.4 % Normal 11.0-15.0 [facility] Comment on above: Performed By: #### C BC #### [facility] [address] [place] [address] Dr. Primo Dumont Hematocrit (Bld) [Volume fraction] 44.8 % Normal 42.0-54.0 [facility] Comment on above: Performed By: #### C BC #### [facility] [address] [place] [address] Dr. Primo Dumont Hemoglobin (Bld) [Mass/Vol] 14.7 g/dL Normal 14.0-18.0 [facility] Comment on above: Performed By: #### C BC #### [facility] [address] [place] [address] Dr. Primo Dumont IG # 0.01 10e3/ul Normal 0.00-0.03 [facility] Comment on above: Performed By: #### C BC #### [facility] [address] [place] [address] Dr. Primo Dumont IG % 0.3 % Normal 0.0-0.5 [facility] Comment on above: Performed By: #### C BC #### [facility] [address] [place] [address] Dr. Primo Dumont LYMPH # 1.4 103/ul Normal 1.2-3.8 [facility] Comment on above: Performed By: #### C BC #### [facility] [address] [place] [address] Dr. Primo Dumont Lymphocytes/100 WBC (Bld) 40.2 % Normal 20.5-60.0 [facility] Comment on above: Performed By: #### C BC #### [facility] [address] [place] [address] Dr. Primo Dumont MANUAL DIFF REQ NO Normal [facility] Comment on above: Performed By: #### C BC #### [facility] [address] [place] [address] Dr. Primo Dumont MCH (RBC) [Entitic mass] 30.4 pg Normal 25.9-34.0 [facility] Comment on above: Performed By: #### C BC #### [facility] [address] [place] [address] Dr. Primo Dumont MCHC (RBC) [Mass/Vol] 32.8 g/dL Normal 29.9-35.2 [facility] Comment on above: Performed By: #### C BC #### [facility] [address] [place] [address] Dr. Primo Dumont MCV (RBC) [Entitic vol] 92.8 fL Normal 80.0-94.0 [facility] Comment on above: Performed By: #### C BC #### [facility] [address] [place] [address] Dr. Primo Dumont MONO # 0.3 103/ul Normal 0.3-0.8 [facility] Comment on above: Performed By: #### C BC #### [facility] [address] [place] [address] Dr. Primo Dumont Monocytes/100 WBC (Bld) 8.8 % Normal 1.7-12.0 [facility] Comment on above: Performed By: #### C BC #### [facility] [address] [address] [address] Primo Dumont NEUT # 1.5 103/ul Normal 1.4-6.5 [facility] Comment on above: Performed By: #### C BC #### [facility] [address] [address] [address] Primo Dmuont Neutrophils/100 WBC (Bld) 43.3 % Normal 43.0-75.0 [facility] Comment on above: Performed By: #### C BC #### [facility] [address] [place] [address] Dr. Primo Dumont Platelet mean volume (Bld) [Entitic vol] 8.7 fL Critically low 9.5-13.5 [facility] Comment on above: Performed By: #### C BC #### [facility] [address] [place] [address] Dr. Primo Dumont PLT 319 103/ul Normal 150-450 [facility] Comment on above: Performed By: #### C BC #### [facility] [address] [place] [address] Dr. Primo Dumont RBC 4.83 106/ul Normal 4.70-6.10 [facility] Comment on above: Performed By: #### C BC #### [facility] [address] [place] [address] Dr. Primo Dumont WBC 3.5 103/ul Critically low 4.0-11.0 [facility] Comment on above: Performed By: #### C BC #### [facility] [address] [place] [address] Dr. Primo Dumont LIPID PROFILEon 07-19-2021 CHOL-HDL RATIO NORM SEE BELOW Normal [facility] Comment on above: Result Comment: 3.3 - 4.4 LOW RISK 4.4 - 7.1 AVERAGE RISK 7.1 - 11.0 MODERATE RISK >11.0 HIGH RISK Performed By: #### L IPID, CMP #### [facility] [address] [place] [address] Dr. Primo Dumont Cholesterol [Mass/Vol] 231 mg/dL Critically high <=200 [facility] Comment on above: Performed By: #### L IPID, CMP #### [facility] [address] [address] [address] Primo Dumont Cholesterol in HDL [Mass/Vol] 83 mg/dL Normal [facility] Comment on above: Performed By: #### L IPID, CMP #### [facility] [address] [address] [address] Primo Dumont Cholesterol in LDL [Mass/Vol] 137.0 mg/dL Normal [facility] Comment on above: Performed By: #### L IPID, CMP #### [facility] [address] [address] [address] Primo Dumont Cholesterol.total/Cho lesterol in HDL [Mass ratio] 2.8 {ratio} Normal [facility] Comment on above: Performed By: #### L IPID, CMP #### [facility] [address] [address] [address] Primo Dumont HDL NORMAL > or = 60 mg/dl - LOW CARDIOVASCULAR RISK <40 mg/dl - HIGH CARDIOVASCULAR RISK Normal [facility] Comment on above: Performed By: #### L IPID, CMP #### [facility] [address] [place] [address] Dr. Primo Dumont LDL CALC NORMAL SEE BELOW Normal [facility] Comment on above: Result Comment: <100 mg/dl OPTIMAL 100 - 129 mg/dl NEAR OR ABOVE OPTIMAL 130 - 159 mg/dl BORDERLINE HIGH 160 - 189 mg/dl HIGH >190 mg/dl VERY HIGH Performed By: #### L IPID, CMP #### [facility] [address] [address] [address] Primo Dumont Triglyceride [Mass/Vol] 55 mg/dL Normal <=150 [facility] Comment on above: Performed By: #### L IPID, CMP #### [facility] [address] [address] [address] Primo Dumont VLDL CALC 11.0 mg/dL Normal [facility] Comment on above: Performed By: #### L IPID, CMP #### [facility] [address] [address] [address] Primo Dumont PROF 14(COMP METB)on 022 Albumin [Mass/Vol] 4.4 g/dL Normal 3.5-5.0 [facility] Comment on above: Performed By: #### L IPID, CMP #### [facility] [address] [address] [address] Primo Dumont Albumin/Globulin [Mass ratio] 1.2 {ratio} Normal [facility] Comment on above: Performed By: #### L IPID, CMP #### [facility] [address] [address] [address] Primo Dumont ALP [Catalytic activity/Vol] 67 U/L Normal 38-126 [facility] Comment on above: Performed By: #### L IPID, CMP #### [facility] [address] [address] [address] Primo Dumont ALT [Catalytic activity/Vol] 26 U/L Normal 21-72 [facility] Comment on above: Performed By: #### L IPID, CMP #### [facility] [address] [address] [address] Primo Dumont Anion gap [Moles/Vol] 7.2 mmol/L Normal [facility] Comment on above: Performed By: #### L IPID, CMP #### [facility] [address] [address] [address] Primo Dumont AST [Catalytic activity/Vol] 15 U/L Critically low 17-59 [facility] Comment on above: Performed By: #### L IPID, CMP #### [facility] [address] [address] [address] Primo Dumont Bilirubin [Mass/Vol] 0.5 mg/dL Normal 0.2-1.3 [facility] Comment on above: Performed By: #### L IPID, CMP #### [facility] [address] [address] [address] Primo Dumont Calcium [Mass/Vol] 8.9 mg/dL Normal 8.4-10.2 [facility] Comment on above: Performed By: #### L IPID, CMP #### [facility] [address] [place] [address] Dr. Primo Dumont Chloride [Moles/Vol] 105 mmol/L Normal 98-107 [facility] Comment on above: Performed By: #### L IPID, CMP #### [facility] [address] [place] [address] Dr. Primo Dumont CO2 [Moles/Vol] 33.0 mmol/L Critically high 22.0-30.0 [facility] Comment on above: Performed By: #### L IPID, CMP #### [facility] [address] [place] [address] Dr. Primo Dumont Creatinine [Mass/Vol] 0.85 mg/dL Normal 0.66-1.25 [facility] Comment on above: Performed By: #### L IPID, CMP #### [facility] [address] [place] [address] Dr. Primo Dumont EGFR-AF MACANESE >60 Normal >=60 [facility] Comment on above: Performed By: #### L IPID, CMP #### [facility] [address] [place] [address] Dr. Primo Dumont EGFR-NON AF MACANESE >60 Normal >=60 [facility] Comment on above: Performed By: #### L IPID, CMP #### [facility] [address] [place] [address] Dr. Primo Dumont Globulin (S) [Mass/Vol] 3.6 g/dL Normal [facility] Comment on above: Performed By: #### L IPID, CMP #### [facility] [address] [place] [address] Dr. Primo Dumont Glucose [Mass/Vol] 107 mg/dL Critically high 74-106 [facility] Comment on above: Performed By: #### L IPID, CMP #### [facility] [address] [place] [address] Dr. Primo Dumont Potassium [Moles/Vol] 4.2 mmol/L Normal 3.4-5.0 [facility] Comment on above: Performed By: #### L IPID, CMP #### [facility] [address] [place] [address] Dr. Primo Dumont Protein [Mass/Vol] 8.0 g/dL Normal 6.1-8.2 [facility] Comment on above: Performed By: #### L IPID, CMP #### [facility] [address] [place] [address] Dr. Primo Dumont Sodium [Moles/Vol] 141 mmol/L Normal 137-145 [facility] Comment on above: Performed By: #### L IPID, CMP #### [facility] [address] [place] [address] Dr. Primo Dumont Urea nitrogen [Mass/Vol] 13.0 mg/dL Normal 9.0-20.0 [facility] Comment on above: Performed By: #### L IPID, CMP #### [facility] [address] [place] [address] Dr. Primo Dumont Urea nitrogen/Creatinine [Mass ratio] 15.3 mg/mg Normal [facility] Comment on above: Performed By: #### L IPID, CMP #### [facility] [address] [place] [address] Dr. Primo Dumont US SINGLE QUAD LT [...] delineated smoothly marginated. No vascularity is noted ultrasonographically . IMPRESSION: Corresponding with patient's palpable abnormality is a smoothly marginated 4.1 x 1.8 x 0.6 cm slightly hypoechoic solid area. Findings would be most consistent with benign lesion such as a lipoma. A more aggressive lesion cannot entirely be excluded though felt less likely. Clinical correlation is suggested. Electronically authenticated by: PATRICIA CHAVEZ Date: 2021-07-19 09:38 Normal [facility] US ST HEAD_NECKon 07-19-[address] HEAD_NECK EXAM: US ST HEAD_NECK HISTORY: Localized enlarged lymph nodes COMPARISON: None. [...] by: PATRICIA STARKEY Date: 2021-07-19 09:50 Normal [facility] XR MODIFIED BARIUM SWALLOWon 07-19-2021 XR [...] by: PATRICIA STARKEY Date: 2021-07-19 10:42 Normal [facility] Vital Signs Date Time Vital Sign Value Performing Clinician Bhavya colin 01-31-2025 09:05-0400 Body height 193.04 cm [facility] Work Phone: [facility] 01-31-2025 09:05-0400 Body mass index (BMI) [Ratio] 28.5 kg/m2 [employer] DO Work Phone: [facility] 01-31-2025 09:05-0400 Body weight 106.25 kg [employer] DO Work Phone: [facility] 01-31-2025 09:05-0400 Diastolic blood pressure 71 mm[Hg] [employer] DO Work Phone: [facility] 01-31-2025 09:05-0400 Heart rate 60 /min [employer] Work Phone: [facility] 09-15-2025 09:05-0400 Respiratory rate 12 /min Matt Ball DO Work Phone: [facility] 01-31-2025 09:05-0400 Systolic blood pressure 105 mm[Hg] Matt Ball DO Work Phone: [facility] 09-10-2023 15:42-0400 Blood Pressure Location Mitesh NILL [facility] 09-10-2023 15:42-0400 Diastolic blood pressure 78 mm[Hg] Mitesh NILL [facility] 09-10-2023 15:42-0400 Heart rate 72 /min Mitesh NILL [facility] 09-10-2023 15:42-0400 Respiratory rate 16 /min Mitesh NILL [facility] 09-10-2023 15:42-0400 Systolic blood pressure 112 mm[Hg] Mitesh DE SANTIAGOL [facility] 08-26-2023 15:57-0400 Body height 193.04 cm [facility] 08-26-2023 15:57-0400 Body mass index (BMI) [Ratio] 28.5 kg/m2 [facility] 08-26-2023 15:57-0400 Body weight 106.31 kg [facility] 08-26-2023 15:57-0400 Diastolic blood pressure 87 mm[Hg] [facility] 08-26-2023 15:57-0400 Heart rate 55 /min [facility] 08-26-2023 15:57-0400 Respiratory rate 12 /min [facility] 08-26-2023 15:57-0400 Systolic blood pressure 124 mm[Hg] [facility] 07-30-2023 15:23-0400 Body height 193.04 cm [facility] 07-30-2023 15:23-0400 Body mass index (BMI) [Ratio] 28.8 kg/m2 [facility] 07-30-2023 15:23-0400 Body weight 107.55 kg [facility] 07-30-2023 15:23-0400 Diastolic blood pressure 78 mm[Hg] [facility] 07-30-2023 15:23-0400 Heart rate 57 /min [facility] [facility] 07-30-2023 15:23-0400 Respiratory rate 12 /min [facility] 07-30-2023 15:23-0400 Systolic blood pressure 118 mm[Hg] [facility] Encounters Encounter Date Encounter Type Care Provider Facility Start: 01-31-2025 End: 01-31-2025 ambulatory Matt King DO Work Phone: [facility] Work Phone: Start: 01-31-2025 End: 01-31-2025 Patient encounter procedure Matt Fernando -[facility] Work Phone: Start: 01-31-2025 End: 01-31-2025 Patient encounter status Matt King DO [facility] Start: 09-10-2023 End: 09-11-2023 ambulatory Mitesh OLIVER Facility:[facility] Start: 09-10-2023 End: 09-10-2023 Patient encounter procedure Mitesh DE SANTIAGOL [facility] Start: 08-26-2023 End: 08-26-[address] [facility] Work Phone: Start: 08-26-2023 End: 08-26-2023 Patient encounter procedure [facility] Work Phone: Start: 08-01-2023 ambulatory Mitesh NILL Facility:[facility] Start: 07-31-2023 Non-patient / Non-visit [facility] Work Phone: Start: 07-30-2023 End: 07-30-2023 Encounter for general adult medical examination without abnormal findings [facility] Start: 07-30-2023 End: 07-30-2023 Patient encounter procedure [facility] Work Phone: Start: 07-20-2021 Encounter for genera l adult medical examination without abnormal findings DR MATT KING [facility] Start: 07-19-2021 End: 07-20-[address] MATT KING Facility:[facility] Start: 07-19-2021 End: 07-20-2021 Encounter for general adult medical examination without abnormal findings DR MATT KING Facility:[facility] Procedures Date Procedure Procedure Detail Performing Clinician None (qualifier value) Reynaldo OLIVER Plan of Treatment Date Care Activity Detail Author Start: 07-30-2023 Patient referral [facility] Work Phone: Comprehensive metabo lic 1999 panel - Serum or Plasma [facility] Comprehensive metabo lic 1999 panel - Serum or Plasma [facility] Patient referral [facility] Work Phone: XR Shoulder - right Views [facility] Payers Date Payer Category Payer Unknown [id number] 1970 Unknown [id number] 1957 Unknown [id number] Social History Date Type Detail [facility] Work Phone: Start: 1970 Sex Assigned At Male [facility] Start: 09-10-2023 End: 01-31-2025 Tobacco smoking status Never smoked tobacco (finding) [facility] Tobacco smoking status Never [facility] Sex Assigned At Male [facility] Sex Male (finding) [facility] Functional Status Date Assessment Result Facility 09-10-2023 Functional Status N/A [facility] Clinical Note 09-10-2023 Note Date & Type Note Facility 09-10-2023 Note Chief Complaint consultation for mass HPI Staff 52 year old male presents on consultation from Dr. King for left lower abdominal mass. Reports noting mass several years ago. Verbalized mass has been increasing in size. Denies discomfort. US completed 07/2021 with probable lipoma. History of Present Illness 52 yo male with several year h/o subcutaneous mass left hip; slight increase in size; no pain or skin changes; US 2 years ago with 4 cm hypoechoic lesion, no suspicious features, consistent with lipoma; no h/o other similar lesions or fmhx; no tobacco use. Review of Systems PHQ Score Initial Depression Screen Score: 0 SCORE ROS - Provider Constitutional: no fever, no sweats, no weight loss. Eyes: no glasses, no blurred vision, no visual loss. ENMT: no dentures, no hoarseness, no swallowing difficulties, no hearing loss, no ear infection(s), no nose bleeds. Cardiovascular: normal blood pressure, no chest pain, regular heartbeat, no heart murmur. Respiratory: no shortness of breath, no cough, no asthma, no wheezing. Gastrointestinal: no nausea, no vomiting, no diarrhea, no constipation, no blood in stool, no change in bowel habits, no abdominal pain, no hepatitis. Genitourinary: no kidney stones, no urine infection, no dysuria. Musculoskeletal: no pain, no weakness. Skin: no changing moles, no rash, yes skin lumps. Neurologic: no seizures, no epilepsy, no headache. Psychiatric: no emotional or psychiatric problem. Heme/Lymph: no bleeding problems, no anemia, no blood clots, no transfusions. Allergy/Immunologic: no swollen lymph nodes/glands, no IV drug abuse. Other: Additional ROS info: Except as noted in the above Review of Systems and in the History of Present Illness, all other systems have been reviewed and are negative or noncontributory. Physical Exam Vitals & Measurements HR: 72(Peripheral) RR: 16 BP: 112/78 HT: 76 in HT: 193 cm WT: 108 kg WT: 237.6 lb BMI: 28.99 Gastrointestinal: soft, non distended, no tenderness, no masses, no palpable hernias, diastasis recti no, no hepatosplenomegaly; normal bs Lymphatic: no inguinal adenopathy. skin: left lateral lower quadrant with 5 cm oblong, soft, mobile subcutaneous nodule; no skin changes, nontender. Psychiatric/Neuro: oriented to time, place, person, judgement normal, affect appropriate for age, insight intact, no focal deficits. Tests: , x-rays reviewed, review of old records completed , Discussed surgical options, risks, and possible complications with patient. Assessment/Plan 1. 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 Follow-up No qualifying data available Problem List/Past Medical History Ongoing BMI 28.0-28.9,adult Lipoma of abdominal wall Lumbar spondylosis Overweight Historical No qualifying data Procedure/Surgical History None. Medications No active medications Allergies No Known Allergies No Known Medication Allergies Social History Alcohol Current, Beer, Daily, 09/10/2023 Substance Abuse - Denies Substance Abuse, 09/10/2023 Tobacco Never (less than 100 in lifetime) Tobacco Use:. Never Smokeless Tobacco Use:., 09/10/2023 Family History Diabetes mellitus type 2: Father. Logan disease: Mother. Stroke: Brother. [facility] Comment on above: Result Comment: Elec tronically Signed By: MELODY BOO, Mitesh Mullen\Date and Time Signed: 09/10/23 16:01 EDT Evaluation + Plan note Note Date & Type Note Facility Evaluation + Plan note No data available for this section [facility] [place] Evaluation note Note Date & Type Note Facility Evaluation note Diagnosis Onset Date Dupuytren's contracture of both hands acute Lipoma of abdominal wall acu te Overweight acute Right shoulder pain acute Screening PSA (prostate specific antigen) noneactive Wellness examination noneact sonia Lipoma of abdominal wall acu te Overweight acute Right shoulder pain acute [facility] Work Phone: Evaluation note Note Date & Type Note Facility Evaluation note Diagnosis Onset Date Resolution Dupuytren's contracture of both hands acute January 31, 2025 8:54am Lipoma of abdominal wall acute January 31, 2025 8:54am Overweight acute January 8:54am Right shoulder pain acute Septe [id number] 8:54am Screening for colon cancer acute January 31, 2025 8:54am Screening PSA (prostate specific antigen) noneactive January 8:54am Wellness examination noneactive Jan 8:54am [facility] Work Phone: Hospital Discharge instructions Note Date & Type Note Facility Hospital Discharge instructions No data available for this section [facility] Progress note Note Date & Type Note Facility Progress note No data available for this section [facility] Reason for referral (narrative) Note Date & Type Note Facility Reason for referral (narrative) No reason for referral information available [facility] Work Phone: Summary Purpose Family History Relationship Condition Age at Onset Recorded Date/T ling father Diabetes mellitus Unknown Advance Directives Advance Directive Response Recorded Date/ Time Advance Directives No July 29, 2 024 3:12pm Chief Complaint and Reason for Visit Chief Complaint left shoulder pain shoulder pain/possible MRI Reason for Visit Dupuytren's contract ure of both hands Lipoma of abdominal wall Overweight Right shoulder pain Screening PSA (prostate specific antigen) Wellness examination Lipoma of abdominal wall Overweight Right shoulder pain Chief Complaint Admit Date Wellness January 31, 2025 8:54am Reason for Visit Admit Date Dupuytren's contracture of both hands Se [id number] 8:54am Lipoma of abdominal wall January 31, 2025 8:54am Overweight January 31, 2025 8:54am Right shoulder pain January 31, 2025 8:54am Screening for colon cancer January 8:54am Screening PSA (prostate specific antigen ) January 31, 2025 8:54am Wellness examination January 31 8:54am Additional Source Comments (unrecognized sect ion and content) No Status Records FoundNo Status Records Found INFORMATION SOURCE (unrecogn ized section and content) DATE CREATED AUTHOR 07/21/2021 [facility] DATE CREATED AUTHOR 'S ORGANIZ ATION 09/12/2023 [facility] Care Teams (unrecognized sec tion and content) Team Status: Active Member Role Status Dates Matt King , DO Primary Care Provider Active Team Status: Inactive Member Role Status Dates Matt King , DO Primary Care Provide r, Attending Provider Active Start: July 30, 2023 End: July 30, 2023 Team Status: Active Member Role Status Dates Matt King , DO Primary Care Provide r, Attending Provider Active Start: July 31, 2023 Team Status: Inactive Member Role Status Dates Matt King , DO Primary Care Provide r, Attending Provider Active Start: August 26, 2023 End: August 26, 2023 Team Status: Inactive Member Role Status Dates Matt King , Primary Care Provider Active Start: January 31, 2025 End: January 31, 2025 Matt King , DO Attending Provider Active Sta rt: January 31, 2025 End: January 31, 2025 Goals (unrecognized section and content) Goals may be documented in a n alternate section No data available for this sectionGoals may be documented in an alternate section FOR RECORDS PERTAINING TO PATIENTS WHO ARE [...] BE BASED ON THE PRIMARY CLINICAL RECORDS. [employer] provides no warranty or guarantee of the accuracy or completeness of information in this document.
[2025-02-07 07:08] LABS: Hematocrit 41.0 % (42.0-54.0); Hemoglobin 14.4 g/dL (14.0-18.0); Immature Granulocytes Abs Auto 0.00 10^3/uL (0.00-0.03); Immature Granulocytes Pct Auto 0.0 % (0.0-0.5); Lymphocytes Absolute Auto 1.2 10^3/uL (1.2-3.8); Mean Corpuscular HGB Conc 35.1 g/dL (29.9-35.2); Mean Corpuscular Hemoglobin 31.6 pg (25.9-34.0); Mean Corpuscular Volume 90.1 fL (80.0-94.0); Platelet Count 303 10^3/uL (150-450); Red Blood Count 4.55 10^6/uL (4.70-6.10); White Blood Count 3.3 10^3/uL (4.0-11.0)
[2025-02-07 07:21] LABS: Alanine Aminotransferase 27 U/L (16-63); Albumin Globulin Ratio 1.1; Albumin Level 3.9 g/dL (3.4-5.0); Alkaline Phosphatase 45 U/L (46-116); Anion Gap 15.4; Aspartate Amino Transferase 19 U/L (15-37); Blood Urea Nitrogen 16.0 mg/dL (7.0-18.0); Calcium 8.5 mg/dL (8.5-10.1); Carbon Dioxide 24.7 mmol/L (21.0-32.0); Chloride 105 mmol/L (98-107); Cholesterol 216 mg/dL (<=200); Estimated GFR (African America >60 (>=60 mL/min/1.73m^2); Estimated GFR (Non-African Ame >60 (>=60 mL/min/1.73m^2); Globulin 3.6 g/dL; Glucose 115 mg/dL (74-106); HDL Cholesterol 75 mg/dL (40-60); Potassium 4.1 mmol/L (3.5-5.1); Sodium 141 mmol/L (136-145); Total Protein 7.5 g/dL (6.4-8.2); Triglycerides 72 mg/dL (<=150); VLDL CHOLESTEROL 14.4 mg/dL
== END 2025-02-07 06:49 | disposition home or self-care (01) ==
LOC: LAB 06:49
PROVIDERS: PCP Internal Medicine; Visit Provider Internal Medicine
DX: Z00.00 Encounter for general adult medical examination without abnormal findings (principal); Z12.5 Encounter for screening for malignant neoplasm of prostate
CPT/HCPCS: 36415; 80053; 80061; 85025; G0103